=== PATIENT | male | born 1940 | race Caucasian/White ===

== ENCOUNTER 2020-07-30 16:18 | Observation (INO) ==
[2020-07-30] MEDS ORDERED: OPTIRAY 350 500ml IV ONE (16:19)
--- NOTE | 2020-07-30 16:32 | Emergency Department Note ---
Impression & Plan 3rd nerve palsy, partial, Hypertension, Unsteady ED Provider Note Provider: Yandel Gustafson MD DATE OF SERVICE: 07/30/2020 CHIEF COMPLAINT: Visual change, dizziness HISTORY OF PRESENT ILLNESS: Patient is a 79-year-old gentleman history of hypertension presenting here today reporting that he went to bed last night okay around 11:00pm. Woke up around 530a this morning and stated he felt that his vision was off he felt somewhat unstable. Denies any nausea or pain. Denies any numbness or weakness in his arms or legs. Denies any difficulty speaking. Denies any falls. Denies history of similar. Patient denies any chest pain or shortness of breath or recent fevers. Patient states it seemed like his left eye was not quite working as well but denies black spots or flashes or eye pain. Went to the eye doctor who referred him here today via ambulance. Was made a stroke alert in consultation prior to arrival. Patient's not on significant anticoagulation. Patient denies a history of stroke, CAD, or diabetes. REVIEW OF SYSTEMS: A total of 10 review of systems was obtained and negative except as stated above in the HPI. PAST MEDICAL HISTORY: As noted above MEDICATIONS: Reviewed home medication list SOCIAL HISTORY: Former smoker, lives at home PHYSICAL EXAM: GENERAL: alert and oriented in no acute distress on stretcher Head: normocephalic and atraumatic EYES: No injection, discharge or icterus. PERRL, patient is unable to Adduct the right eye and the left eye has some slight bouncing horizontal nystagmus during attempts to look towards the left. Other extraocular motions appear intact. NECK: Trachea midline. Supple. ENT: Mucous membranes pink and moist. Pharynx without erythema or exudate. LUNGS: Airway patent. No retractions. Breath sounds clear with good air entry bilaterally. HEART: Regular rate and rhythm. No chest wall tenderness ABDOMEN: Soft and non-tender, without guarding or rebound. SKIN: Acyanotic, warm, dry, without rashes EXTREMITIES: Without swelling, tenderness or deformity NEUROLOGICAL: No focal deficits. No aphasia. No facial droop or slurred speech. Again a partial right 3rd nerve palsy appreciated unable to abduct the right eye towards midline. Normal strength and tone in the extremities. Sensation to gross touch normal. EK/min sinus and first AV block without ST segment elevation or depression. Left axis noted. QTc 447. No PVC noted. CONTINUOUS CARDIAC MONITORING: was ordered and showed a heart rate of 60s and 70s bpm in sinus rhythm first-degree AV block Patient's laboratory studies and imaging reviewed. Differential includes Infection, dehydration, metabolic abnormality, hypo/hyperglycemia, electrolyte disturbance, anemia, hypoxia, cardiac sources, intracerebral event, toxicologic, neurologic, as well as other pathologies. IMPRESSION/MEDICAL DECISION MAKING: Patient presents with his concern for strokelike symptoms with dizziness and visual issues and made a stroke alert. Outside the time window for TPA. No large vessel occlusion or intracranial hemorrhage appreciated on imaging. Patient has what appears to be a new onset of a right partial 3rd nerve palsy; unable to abduct medially with the right eye. No other significant neurological deficits are appreciated. Given full dose aspirin here. While he does not have significant diabetic cardiovascular risk factors, possible occult stroke or ischemic 3rd nerve palsy are possible. Blood work above without significant abnormality. Discussed the patient proceed with further work-up MRI. Given his age and risk factors feel that obtaining the MRI and further observation here and neurological consultation morning would be reasonable. Patient was in agreement. Discussed with the hospitalist. 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 History of COVID-19 History of malignant neoplasm of small intestine Hx of basal cell carcinoma Hx of small bowel obstruction Hyperlipidemia Hypertension Osteoarthritis Surgical History H/O shoulder surgery RT TSA History of cataract surgery LEFT History of colon resection History of colonoscopy History of esophagogastroduodenoscopy (EGD) History of herniorrhaphy LEFT INGUINAL History of inguinal hernia repair History of tonsillectomy History of tooth extraction History of transurethral resection of prostate S/P repair of hydrocele Family History Mother Clotting disorder Social History Smoking Status: Never smoker Second Hand Exposure: No; Do You Dip or Chew Tobacco: No; Tobacco Cessation Education Requested by Patient: No Hx Alcohol Use: No Hx Substance Use: No Preferred Language: Mongolian Communication Ability: Effective Straw Hat Brusher Required: No Beliefs That Will Affect Care: None Current Living Situation: Alone Other Information That Helps Us Care for You: No Feels Safe at Home: Yes Safety Concerns: Feels Safe At This Time Assistive Devices: None Allergies Allergies Allergy/AdvReac Type Severity Reaction Status Date / Time gadobutrol Allergy Severe tongue Verified 07/30/20 21:15 swelling Gadolinium-Containing Allergy Severe Anaphylaxis Verified 07/31/20 00:00 Contrast Medi house dust mite Allergy Mild SINUS Verified 07/30/20 20:51 DRAINAGE Home Meds Home Medications Medication Instructions Recorded Confirmed albuterol sulfate 1 inh INHALATION QID PRN 09/22/19 07/30/20 atorvastatin 20 mg PO HS 09/22/19 07/30/20 cyanocobalamin (vitamin B-12) 500 mcg PO HS 09/22/19 07/30/20 folic acid 1 mg PO HS 09/22/19 07/30/20 ipratropium bromide 2 spray INTRANASAL TID PRN 09/22/19 07/30/20 losartan-hydrochlorothiazide 1 tab PO QAM 09/22/19 07/30/20 pyridoxine (vitamin B6) [Vitamin 100 mg PO HS 09/22/19 07/30/20 B-6] azelastine 2 spray INTRANASAL DAILY 07/30/20 07/30/20 vardenafil [Levitra] 20 mg PO DAILY PRN 07/30/20 07/30/20 Results & Data (ED) Vital Signs Vital Signs - 24 hr 07/30/20 16:38 07/30/20 16:45 07/30/20 16:52 Temperature 36.9 C Temperature Source Oral Pulse Rate 67 86 72 Pulse Rate from SpO2 Sensor 71 73 Respiratory Rate 18 Blood Pressure 172/106 H 177/98 H Blood Pressure Mean 128 124 Pulse Oximetry 98 95 93 Sepsis Recent Fever Within 48 Hours No Sepsis New/Unexplained Change in Mental Status No Sepsis Action Taken by Nursing No Action Required 07/30/20 17:00 07/30/20 17:16 07/30/20 17:30 Temperature Temperature Source Pulse Rate 70 75 71 Pulse Rate from SpO2 Sensor 74 71 69 Respiratory Rate 18 23 Blood Pressure 181/95 H 180/98 H 186/90 H Blood Pressure Mean 123 125 122 Pulse Oximetry 90 92 91 Sepsis Recent Fever Within 48 Hours Sepsis New/Unexplained Change in Mental Status Sepsis Action Taken by Nursing 07/30/20 17:45 Temperature Temperature Source Pulse Rate 72 Pulse Rate from SpO2 Sensor 69 Respiratory Rate 23 Blood Pressure 185/90 H Blood Pressure Mean 121 Pulse Oximetry 92 Sepsis Recent Fever Within 48 Hours Sepsis New/Unexplained Change in Mental Status Sepsis Action Taken by Nursing Laboratory Data Result diagrams: 07/30/20 16:30 07/30/20 16:30 Lab Results 07/30/20 07/30/20 07/30/20 Range/Units 16:30 16:30 16:30 WBC 4.58 L (4.8-10.8) K/uL RBC 4.04 L (4.7-6.1) M/uL Hgb 13.4 L (14.0-18.0) g/dL Hct 39.4 L (42-52) % MCV 97.5 (80-100) fL MCH 33.2 (25-34) pg MCHC 34.0 (32-36) g/dL RDW Std Deviation 48.7 H (36.4-46.3) fL RDW Coeff of Alonzo 13.6 (11.5-14.5) % Plt Count 153 (130-400) K/uL MPV 9.5 (7.4-10.4) fL Immature Gran % (Auto) 0.2 % Neut % (Auto) 54.2 % Lymph % (Auto) 31.4 % [place] % (Auto) 11.6 % Eos % (Auto) 2.4 % Baso % (Auto) 0.2 % Neut # (Auto) 2.48 (1.4-6.5) K/uL Lymph # (Auto) 1.44 (1.2-3.4) K/uL [place] # (Auto) 0.53 (0.11-0.59) K/uL Eos # (Auto) 0.11 (0-0.5) K/uL Baso # (Auto) 0.01 (0-0.2) K/uL Immature Gran # (Auto) 0.01 (0.00-0.02) K/uL PT 10.6 (9.0-12.0) Seconds INR 1.0 (0.9-1.1) APTT 25.4 (21.0-31.0) Seconds PTT Ratio 1.0 Sodium (136-145) mmol/L Potassium (3.5-5.1) mmol/L Chloride (98-107) mmol/L Carbon Dioxide (21-32) mmol/L Anion Gap (3-11) BUN (7-18) mg/dl Creatinine (0.6-1.4) mg/dl Est Cr Clr Drug Dosing ml/min Est GFR ( Amer) ml/min Est GFR (Non-Af Amer) ml/min BUN/Creatinine Ratio (10-20) Glucose (70-99) mg/dl Calcium (8.5-10.1) mg/dl Magnesium (1.8-2.4) mg/dl Total Bilirubin (0.2-1) mg/dl AST (15-37) U/L ALT (12-78) U/L Alkaline Phosphatase (45-117) U/L Troponin I (0-0.045) ng/ml Total Protein (6.4-8.2) gm/dl Albumin (3.4-5.0) gm/dl Globulin (2.5-4.0) gm/dl Albumin/Globulin Ratio (0.9-2) Urine Color Urine Appearance (Clear) Urine pH (4.5-7.5) Ur Specific Star (1.000-1.030) Urine Protein (Negative) Urine Glucose (UA) (Negative) Urine Ketones (Negative) Urine Blood (Negative) Urine Nitrite (Negative) Urine Bilirubin (Negative) Urine Urobilinogen (Negative) Ur Leukocyte Esterase (Negative) COVID-19 Eval Order SARS-CoV-2 (PCR) (Negative) Blood Type A Positive Antibody Screen NEGATIVE 07/30/20 07/30/20 07/30/20 Range/Units 16:30 16:50 16:50 WBC (4.8-10.8) K/uL RBC (4.7-6.1) M/uL Hgb (14.0-18.0) g/dL Hct (42-52) % MCV (80-100) fL MCH (25-34) pg MCHC (32-36) g/dL RDW Std Deviation (36.4-46.3) fL RDW Coeff of [place]onzo (11.5-14.5) % Plt Count (130-400) K/uL MPV (7.4-10.4) fL Immature Gran % (Auto) % Neut % (Auto) % Lymph % (Auto) % [place] % (Auto) % Eos % (Auto) % Baso % (Auto) % Neut # (Auto) (1.4-6.5) K/uL Lymph # (Auto) (1.2-3.4) K/uL [place] # (Auto) (0.11-0.59) K/uL Eos # (Auto) (0-0.5) K/uL Baso # (Auto) (0-0.2) K/uL Immature Gran # (Auto) (0.00-0.02) K/uL PT (9.0-12.0) Seconds INR (0.9-1.1) APTT (21.0-31.0) Seconds PTT Ratio Sodium 138 (136-145) mmol/L Potassium 4.4 (3.5-5.1) mmol/L Chloride 108 H (98-107) mmol/L Carbon Dioxide 26 (21-32) mmol/L Anion Gap 4.0 (3-11) BUN 17 (7-18) mg/dl Creatinine 1.08 (0.6-1.4) mg/dl Est Cr Clr Drug Dosing 65.0 ml/min Est GFR ( Amer) 75.3 ml/min Est GFR (Non-Af Amer) 64.9 ml/min BUN/Creatinine Ratio 15.5 (10-20) Glucose 92 (70-99) mg/dl Calcium 8.3 L (8.5-10.1) mg/dl Magnesium 2.6 H (1.8-2.4) mg/dl Total Bilirubin 0.8 (0.2-1) mg/dl AST 14 L (15-37) U/L ALT 25 (12-78) U/L Alkaline Phosphatase 42 L (45-117) U/L Troponin I < 0.015 (0-0.045) ng/ml Total Protein 6.5 (6.4-8.2) gm/dl Albumin 3.2 L (3.4-5.0) gm/dl Globulin 3.3 (2.5-4.0) gm/dl Albumin/Globulin Ratio 1.0 (0.9-2) Urine Color Urine Appearance (Clear) Urine pH (4.5-7.5) Ur Specific Star (1.000-1.030) Urine Protein (Negative) Urine Glucose (UA) (Negative) Urine Ketones (Negative) Urine Blood (Negative) Urine Nitrite (Negative) Urine Bilirubin (Negative) Urine Urobilinogen (Negative) Ur Leukocyte Esterase (Negative) COVID-19 Eval Order Covid19 at [facility] SARS-CoV-2 (PCR) NEGATIVE (Negative) Blood Type Antibody Screen 07/30/20 Range/Units 17:20 WBC (4.8-10.8) K/uL RBC (4.7-6.1) M/uL Hgb (14.0-18.0) g/dL Hct (42-52) % MCV (80-100) fL MCH (25-34) pg MCHC (32-36) g/dL RDW Std Deviation (36.4-46.3) fL RDW Coeff of [place]onzo (11.5-14.5) % Plt Count (130-400) K/uL MPV (7.4-10.4) fL Immature Gran % (Auto) % Neut % (Auto) % Lymph % (Auto) % [place] % (Auto) % Eos % (Auto) % Baso % (Auto) % Neut # (Auto) (1.4-6.5) K/uL Lymph # (Auto) (1.2-3.4) K/uL [place] # (Auto) (0.11-0.59) K/uL Eos # (Auto) (0-0.5) K/uL Baso # (Auto) (0-0.2) K/uL Immature Gran # (Auto) (0.00-0.02) K/uL PT (9.0-12.0) Seconds INR (0.9-1.1) APTT (21.0-31.0) Seconds PTT Ratio Sodium (136-145) mmol/L Potassium (3.5-5.1) mmol/L Chloride (98-107) mmol/L Carbon Dioxide (21-32) mmol/L Anion Gap (3-11) BUN (7-18) mg/dl Creatinine (0.6-1.4) mg/dl Est Cr Clr Drug Dosing ml/min Est GFR ( Amer) ml/min Est GFR (Non-Af Amer) ml/min BUN/Creatinine Ratio (10-20) Glucose (70-99) mg/dl Calcium (8.5-10.1) mg/dl Magnesium (1.8-2.4) mg/dl Total Bilirubin (0.2-1) mg/dl AST (15-37) U/L ALT (12-78) U/L Alkaline Phosphatase (45-117) U/L Troponin I (0-0.045) ng/ml Total Protein (6.4-8.2) gm/dl Albumin (3.4-5.0) gm/dl Globulin (2.5-4.0) gm/dl Albumin/Globulin Ratio (0.9-2) Urine Color Yellow Urine Appearance Clear (Clear) Urine pH 5.5 (4.5-7.5) Ur Specific Star 1.028 (1.000-1.030) Urine Protein Negative (Negative) Urine Glucose (UA) Negative (Negative) Urine Ketones Negative (Negative) Urine Blood Negative (Negative) Urine Nitrite Negative (Negative) Urine Bilirubin Negative (Negative) Urine Urobilinogen Negative (Negative) Ur Leukocyte Esterase Negative (Negative) COVID-19 Eval Order SARS-CoV-2 (PCR) (Negative) Blood Type Antibody Screen Administered Medications Atorvastatin Calcium (Atorvastatin 20 Mg Tab) 20 mg PO [facility] Stop: 08/29/20 20:59 Last Admin: 07/31/20 00:13 Dose: 20 mg Documented by: [id number] Cyanocobalamin (Cyanocobalamin 500 Mcg Tablet (Vitamin B-12)) 500 mcg PO [facility] Stop: 08/29/20 20:59 Last Admin: 07/31/20 00:13 Dose: 500 mcg Documented by: [id number] Folic Acid (Folic Acid 1 Mg Tab) 1 mg PO [facility] Stop: 08/29/20 20:59 Last Admin: 07/31/20 00:13 Dose: 1 mg Documented by: [id number] Sodium Chloride (Nss 1000ml) 1,000 mls @ 125 mls/hr IV .Q8H JODY Stop: 08/01/20 22:14 Last Admin: 07/31/20 00:16 Dose: 125 mls/hr Documented by: [id number] Pyridoxine HCl (Pyridoxine Hcl 50 Mg Tab) 100 mg PO [facility] Stop: 08/29/20 20:59 Last Admin: 07/31/20 00:13 Dose: 100 mg Documented by: [id number] Discontinued Medications Aspirin (Aspirin 81 Mg Chew) 324 mg PO NOW STA Stop: 07/30/20 17:20 Last Admin: 07/30/20 17:31 Dose: 324 mg Documented by: [id number] Diphenhydramine HCl (Diphenhydramine 50 Mg/Ml Vial) 50 mg IV NOW STA Stop: 07/30/20 21:06 Last Admin: 07/30/20 21:30 Dose: 50 mg Documented by: [id number] Epinephrine (Racepinephrine 2.25% Nebu Soln 0.5 Ml Vial) 0.5 ml NEB NOW STA Stop: 07/30/20 21:38 Last Admin: 07/30/20 22:28 Dose: Not Given Documented by: [id number] Gadobutrol (Gadobutrol 65ml Vial) 9 ml IV ONCE ONE Stop: 07/30/20 20:41 Last Admin: 07/30/20 20:40 Dose: 9 ml Documented by: [id number] Sodium Chloride (Nss 1000ml) 500 mls @ 999 mls/hr IV .Q31M ONE Stop: 07/30/20 21:35 Last Infusion: 07/30/20 22:01 Dose: 0 mls/hr Documented by: [id number] Admin: 07/30/20 21:30 Dose: 999 mls/hr Documented by: [id number] Famotidine 20 mg/ Syringe 5 mls @ 2.5 mls/min IV NOW STA Stop: 07/30/20 21:10 Last Admin: 07/30/20 21:32 Dose: 2.5 mls/min Documented by: [id number] Methylprednisolone 125 mg/ (Syringe) 2 mls @ 1.5 mls/min IV NOW STA Stop: 07/30/20 21:11 Last Admin: 07/30/20 21:30 Dose: 1.5 mls/min Documented by: [id number] Ioversol (Optiray 350 500ml) 119 ml IV ONCE ONE Stop: 07/30/20 16:20 Last Admin: 07/30/20 16:20 Dose: 119 ml Documented by: [id number] Imaging Data Radiologist's Impression: Head CT 07/30/20 16:12 HEAD & NECK CTA HISTORY: Left-sided facial droop. Double vision. Stroke Like Symptoms TECHNIQUE: Multiaxial CT images of the head were performed both before and after the intravenous administration of contrast to evaluate the major cerebral vessels. Multiaxial CT images of the neck were also performed following the intravenous administration of contrast to evaluate the major cervical vessels. Maximum intensity projection images were also obtained. A dose lowering technique was utilized adhering to the principles of ALARA. COMPARISON: None. FINDINGS: Head CT: There is no mass, hematoma, midline shift, or acute infarct. Mild mucosal thickening within the ethmoid air cells and right sphenoid sinus. The mastoid air cells are clear. A left scleral buckle is noted. Punctate calcification within the mikaela. The ventricles and sulci demonstrate mild age- related involutional changes. There is no mass, hematoma, midline shift, or acute infarct. Patchy periventricular white matter hypodensity is nonspecific but favors microvascular ischemic change. Head CTA: Visualized intracranial internal carotid arteries, distal vertebral arteries, and basilar artery are widely patent. There is no significant stenosis, occlusion, or aneurysm seen within the bilateral ACAs, MCAs, or clarifier operator. The major dural venous sinuses appear patent. Mild calcified plaque within the bilateral carotid siphons. There is a 2 mm left supraclinoid ICA aneurysm best seen on image 95. Neck CTA: The aortic arch and proximal great vessels are widely patent. There is no significant stenosis, occlusion, or dissection identified within the bilateral common carotid, internal carotid, or vertebral arteries. IMPRESSION: 1. No acute intracranial abnormality. 2. No significant stenosis or occlusion within the [place]. 3. A 2 mm left supraclinoid ICA aneurysm. 4. No significant stenosis, occlusion, or dissection identified within the carotid or vertebral arteries. ACT 112: Negative or not required by law. Electronically signed by: Jimy Can M.D. 07/30/2020 4:43 PM Head CTA 07/30/20 16:12 HEAD & NECK CTA HISTORY: Left-sided facial droop. Double vision. Stroke Like Symptoms TECHNIQUE: Multiaxial CT images of the head were performed both before and after the intravenous administration of contrast to evaluate the major cerebral vessels. Multiaxial CT images of the neck were also performed following the intravenous administration of contrast to evaluate the major cervical vessels. Maximum intensity projection images were also obtained. A dose lowering technique was utilized adhering to the principles of ALARA. COMPARISON: None. FINDINGS: Head CT: There is no mass, hematoma, midline shift, or acute infarct. Mild mucosal thickening within the ethmoid air cells and right sphenoid sinus. The mastoid air cells are clear. A left scleral buckle is noted. Punctate calcification within the mikaela. The ventricles and sulci demonstrate mild age- related involutional changes. There is no mass, hematoma, midline shift, or acute infarct. Patchy periventricular white matter hypodensity is nonspecific but favors microvascular ischemic change. Head CTA: Visualized intracranial internal carotid arteries, distal vertebral arteries, and basilar artery are widely patent. There is no significant stenosis, occlusion, or aneurysm seen within the bilateral ACAs, MCAs, or clarifier operator. The major dural venous sinuses appear patent. Mild calcified plaque within the bilateral carotid siphons. There is a 2 mm left supraclinoid ICA aneurysm best seen on image 95. Neck CTA: The aortic arch and proximal great vessels are widely patent. There is no significant stenosis, occlusion, or dissection identified within the bilateral common carotid, internal carotid, or vertebral arteries. IMPRESSION: 1. No acute intracranial abnormality. 2. No significant stenosis or occlusion within the [place]. 3. A 2 mm left supraclinoid ICA aneurysm. 4. No significant stenosis, occlusion, or dissection identified within the carotid or vertebral arteries. ACT 112: Negative or not required by law. Electronically signed by: Jimy Can M.D. 07/30/2020 4:43 PM Neck CTA 07/30/20 16:12 HEAD & NECK CTA HISTORY: Left-sided facial droop. Double vision. Stroke Like Symptoms TECHNIQUE: Multiaxial CT images of the head were performed both before and after the intravenous administration of contrast to evaluate the major cerebral vessels. Multiaxial CT images of the neck were also performed following the intravenous administration of contrast to evaluate the major cervical vessels. Maximum intensity projection images were also obtained. A dose lowering t echnique was utilized adhering to the principles of ALARA. COMPARISON: None. FINDINGS: Head CT: There is no mass, hematoma, midline shift, or acute infarct. Mild mucosal thickening within the ethmoid air cells and right sphenoid sinus. The mastoid air cells are clear. A left scleral buckle is noted. Punctate calcifica tion within the mikaela. The ventricles and sulci demonstrate mild age-related involutional changes. There is no mass, hematoma, midline shift, or acute infarct. Patchy periventricular white matter hypodensity is nonspecific but favors microvascular ischemic change. Head CTA: Visualized intracranial internal carotid arteries, distal vertebral arteries, and basilar artery are widely patent. There is no significant stenosis, occlusion, or aneurysm seen within the bilateral ACAs, MCAs, or clarifier operator. The major dural venous sinuses appear patent. Mild calcified plaque within the b ilateral carotid siphons. There is a 2 mm left supraclinoid ICA aneurysm best seen on image 95. Neck CTA: The aortic arch and proximal great vessels are widely patent. There is no significant stenosis, occlusion, or dissection identified within the bilateral common carotid, internal carotid, or vertebral arteries. IMPRESSION: 1. No acute intracranial abnormality. 2. No significant stenosis or occlusion within the [place]. 3. A 2 mm left supraclinoid ICA aneurysm. 4. No significant stenosis, occlusion, or dissection identified within the carotid or vertebral arteries. ACT 112: Negative or not required by law. Electronically signed by: iJmy Can M.D. 07/30/2020 4:43 PM Discharge Plan Visit Data Chief Complaint: Stroke Alert Stated Complaint: STROKE ALERT ED Provider: Yandel Gustafson Discharge Problem: 3rd nerve palsy, partial, Hypertension, Unsteady Patient Disposition: Admitted As Inpatient Discharge Instructions Interventions: ED Discharge Assessment Last Done: 07/30/20 19:05 Discharge Problem: 3rd nerve palsy, partial Qualifiers: Laterality: unspecified laterality Qualified Code(s): H49.00 - Third [oculomotor] nerve palsy, unspecified eye Hypertension Qualifiers: Hypertension type: unspecified Qualified Code(s): I10 - Essential (primary) hypertension
[2020-07-30 16:42] LABS: Basophils # (auto) 0.01 K/uL (0-0.2); Basophils % (auto) 0.2 %; Eosinophils # (auto) 0.11 K/uL (0-0.5); Eosinophils % (auto) 2.4 %; Hematocrit (blood only) 39.4 % (42-52); Hemoglobin 13.4 g/dL (14.0-18.0); Immature Granulocytes # (auto) 0.01 K/uL (0.00-0.02); Immature Granulocytes % (auto) 0.2 %; Lymphocytes # (auto) 1.44 K/uL (1.2-3.4); Lymphocytes % (auto) 31.4 %; Mean Corpuscular Hemoglobin 33.2 pg (25-34); Mean Corpuscular Volume 97.5 fL (80-100); Mean Platelet Volume 9.5 fL (7.4-10.4); Monocytes # (auto) 0.53 K/uL (0.11-0.59); Monocytes % (auto) 11.6 %; Neutrophils # (auto) 2.48 K/uL (1.4-6.5); Neutrophils % (auto) 54.2 %; Platelet Count 153 K/uL (130-400); RDW Coefficient of Variation 13.6 % (11.5-14.5); RDW Standard Deviation 48.7 fL (36.4-46.3); Red Blood Count 4.04 M/uL (4.7-6.1); White Blood Count 4.58 K/uL (4.8-10.8)
--- NOTE | 2020-07-30 16:44 | CT Scan Report ---
HEAD & NECK CTA HISTORY: Left-sided facial droop. Double vision. Stroke Like Symptoms TECHNIQUE: Multiaxial CT images of the head were performed both before and after the intravenous admi nistration of contrast to evaluate the major cerebral vessels. Multiaxial CT images of the neck were also performed following the intravenous administration of contrast to evaluate the major cervical ve ssels. Maximum intensity projection images were also obtained. A dose lowering technique was utilized adhering to the principles of ALARA. COMPARISON: None. FINDINGS: Head CT: There is no mass, hematoma, midline shift, or acute infarct. Mild mucosal thickening within the ethmoid air cells and right sphenoid sinus. The mastoid air cells are clear. A left scleral buckl e is noted. Punctate calcification within the mikaela. The ventricles and sulci demonstrate mild age-rel ated involutional changes. There is no mass, hematoma, midline shift, or acute infarct. Patchy perive ntricular white matter hypodensity is nonspecific but favors microvascular ischemic change. Head CTA: Visualized intracranial internal carotid arteries, distal vertebral arteries, and basilar a rtery are widely patent. There is no significant stenosis, occlusion, or aneurysm seen within the skyler ateral ACAs, MCAs, or supervisor ship maintenance services. The major dural venous sinuses appear patent. Mild calcified plaque withi n the bilateral carotid siphons. There is a 2 mm left supraclinoid ICA aneurysm best seen on image 95 . Neck CTA: The aortic arch and proximal great vessels are widely patent. There is no significant sten osis, occlusion, or dissection identified within the bilateral common carotid, internal carotid, or v ertebral arteries. IMPRESSION: 1. No acute intracranial abnormality. 2. No significant stenosis or occlusion within the [place]. 3. A 2 mm left supraclinoid ICA aneurysm. 4. No significant stenosis, occlusion, or dissection identified within the carotid or vertebral arter ies. ACT 112: Negative or not required by law. Electronically signed by: Jimy Can M.D. 07/30/2020 4:43 PM
--- NOTE | 2020-07-30 16:44 | CT Scan Report ---
HEAD & NECK CTA HISTORY: Left-sided facial droop. Double vision. Stroke Like Symptoms TECHNIQUE: Multiaxial CT images of the head were performed both before and after the intravenous admi nistration of contrast to evaluate the major cerebral vessels. Multiaxial CT images of the neck were also performed following the intravenous administration of contrast to evaluate the major cervical ve ssels. Maximum intensity projection images were also obtained. A dose lowering technique was utilized adhering to the principles of ALARA. COMPARISON: None. FINDINGS: Head CT: There is no mass, hematoma, midline shift, or acute infarct. Mild mucosal thickening within the ethmoid air cells and right sphenoid sinus. The mastoid air cells are clear. A left scleral buckl e is noted. Punctate calcification within the mikaela. The ventricles and sulci demonstrate mild age-rel ated involutional changes. There is no mass, hematoma, midline shift, or acute infarct. Patchy perive ntricular white matter hypodensity is nonspecific but favors microvascular ischemic change. Head CTA: Visualized intracranial internal carotid arteries, distal vertebral arteries, and basilar a rtery are widely patent. There is no significant stenosis, occlusion, or aneurysm seen within the [place] ateral ACAs, MCAs, or civil engineering project manager. The major dural venous sinuses appear patent. Mild calcified plaque withi n the bilateral carotid siphons. There is a 2 mm left supraclinoid ICA aneurysm best seen on image 95 . Neck CTA: The aortic arch and proximal great vessels are widely patent. There is no significant sten osis, occlusion, or dissection identified within the bilateral common carotid, internal carotid, or v ertebral arteries. IMPRESSION: 1. No acute intracranial abnormality. 2. No significant stenosis or occlusion within the [place]. 3. A 2 mm left supraclinoid ICA aneurysm. 4. No significant stenosis, occlusion, or dissection identified within the carotid or vertebral arter ies. ACT 112: Negative or not required by law. Electronically signed by: Jimy Can M.D. 07/30/2020 4:43 PM
--- NOTE | 2020-07-30 16:44 | CT Scan Report ---
HEAD & NECK CTA HISTORY: Left-sided facial droop. Double vision. Stroke Like Symptoms TECHNIQUE: Multiaxial CT images of the head were performed both before and after the intravenous admi nistration of contrast to evaluate the major cerebral vessels. Multiaxial CT images of the neck were also performed following the intravenous administration of contrast to evaluate the major cervical ve ssels. Maximum intensity projection images were also obtained. A dose lowering technique was utilized adhering to the principles of ALARA. COMPARISON: None. FINDINGS: Head CT: There is no mass, hematoma, midline shift, or acute infarct. Mild mucosal thickening within the ethmoid air cells and right sphenoid sinus. The mastoid air cells are clear. A left scleral buckl e is noted. Punctate calcification within the mikaela. The ventricles and sulci demonstrate mild age-rel ated involutional changes. There is no mass, hematoma, midline shift, or acute infarct. Patchy perive ntricular white matter hypodensity is nonspecific but favors microvascular ischemic change. Head CTA: Visualized intracranial internal carotid arteries, distal vertebral arteries, and basilar a rtery are widely patent. There is no significant stenosis, occlusion, or aneurysm seen within the [place] ateral ACAs, MCAs, or payable processor. The major dural venous sinuses appear patent. Mild calcified plaque withi n the bilateral carotid siphons. There is a 2 mm left supraclinoid ICA aneurysm best seen on image 95 . Neck CTA: The aortic arch and proximal great vessels are widely patent. There is no significant sten osis, occlusion, or dissection identified within the bilateral common carotid, internal carotid, or v ertebral arteries. IMPRESSION: 1. No acute intracranial abnormality. 2. No significant stenosis or occlusion within the [place]. 3. A 2 mm left supraclinoid ICA aneurysm. 4. No significant stenosis, occlusion, or dissection identified within the carotid or vertebral arter ies. ACT 112: Negative or not required by law. Electronically signed by: Jimy Can M.D. 07/30/2020 4:43 PM
[2020-07-30 16:53] LABS: Partial Thromboplastin Time 25.4 Seconds (21.0-31.0); Prothrombin Time 10.6 Seconds (9.0-12.0)
[2020-07-30 17:00] LABS: Alanine Aminotransferase 25 U/L (12-78); Albumin Level 3.2 gm/dl (3.4-5.0); Aspartate Aminotransferase 14 U/L (15-37); BUN Creatinine Ratio 15.5 (10-20); Blood Urea Nitrogen 17 mg/dl (7-18); Calcium 8.3 mg/dl (8.5-10.1); Carbon Dioxide 26 mmol/L (21-32); Chloride 108 mmol/L (98-107); Est GFR (African American) 75.3 ml/min; Est GFR (Non-African American) 64.9 ml/min; Glucose 92 mg/dl (70-99); Magnesium 2.6 mg/dl (1.8-2.4); Potassium 4.4 mmol/L (3.5-5.1); Sodium 138 mmol/L (136-145)
[2020-07-30 17:05] LABS: Alkaline Phosphatase 42 U/L (45-117); Bilirubin,Total 0.8 mg/dl (0.2-1); Globulin 3.3 gm/dl (2.5-4.0); Total Protein 6.5 gm/dl (6.4-8.2); Troponin I < 0.015 ng/ml (0-0.045)
[2020-07-30] MEDS ORDERED: ASPIRIN 81 MG CHEW PO STA (17:19)
[2020-07-30 18:08] LABS: Appearance Urine Clear (Clear); Bilirubin Urine Negative (Negative); Blood Urine Negative (Negative); Color Urine Yellow; Glucose Urine UA Negative (Negative); Ketones Urine Negative (Negative); Leukocyte Esterase Urine Negative (Negative); Nitrite Urine Negative (Negative); Protein Urine Negative (Negative); Specific Gravity Urine 1.028 (1.000-1.030); Urobilinogen Urine Negative (Negative); pH Urine 5.5 (4.5-7.5)
--- NOTE | 2020-07-30 19:10 | History & Physical Report ---
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 Continue home statin -Brain MRI, echo -Neurochecks -Neurology consult -notified Dr. 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 Patient reports he went to bed feeling in his usual state of health. This morning, whenever he woke up he reports that he had double vision and felt very unsteady on his feet. He was evaluated by his direct mail manager who found a partial 3rd nerve palsy and patient was sent to the ED for further evaluation. Patient denies lightheadedness, dizziness, syncopal event. No chest pain or shortness of breath. Denies abdominal pain, nausea, vomiting, diarrhea. No other recent illnesses, fevers, chills. Denies urinary symptoms. In the ED, head CT and head and neck CTAs are unremarkable. Patient is hemodynamically stable. Patient was given a full dose aspirin. Allergies Allergy/AdvReac Type Severity Reaction Status Date / Time DUST MITES Allergy Mild SINUS Uncoded 07/30/20 17:01 DRAINAGE Home Medications Medication Instructions Recorded Confirmed Type albuterol sulfate 1 inh INHALATION QID PRN 09/22/19 07/30/20 History atorvastatin 20 mg PO HS 09/22/19 07/30/20 History cyanocobalamin (vitamin B-12) 500 mcg PO HS 09/22/19 07/30/20 History folic acid 1 mg PO HS 09/22/19 07/30/20 History ipratropium bromide 2 spray INTRANASAL TID PRN 09/22/19 07/30/20 History losartan-hydrochlorothiazide 1 tab PO QAM 09/22/19 07/30/20 History pyridoxine (vitamin B6) [Vitamin 100 mg PO HS 09/22/19 07/30/20 History B-6] azelastine 2 spray INTRANASAL DAILY 07/30/20 07/30/20 History vardenafil [Levitra] 20 mg PO DAILY PRN 07/30/20 07/30/20 History Past Med/Surg History Medical History BPH (benign prostatic hyperplasia) Environmental allergies USES INHALER FOR Heterozygous MTHFR mutation [id number] History of COVID-19 History of malignant neoplasm of small intestine Hx of basal cell carcinoma Hx of small bowel obstruction Hyperlipidemia Hypertension Osteoarthritis Surgical History H/O shoulder surgery RT TSA History of cataract surgery LEFT History of colon resection History of colonoscopy History of esophagogastroduodenoscopy (EGD) History of herniorrhaphy LEFT INGUINAL History of inguinal hernia repair History of tonsillectomy History of tooth extraction History of transurethral resection of prostate S/P repair of hydrocele Family History Mother Clotting disorder Social History Smoking Status: Never smoker Second Hand Exposure: No; Do You Dip or Chew Tobacco: No; Tobacco Cessation Education Requested by Patient: No Hx Alcohol Use: No Hx Substance Use: No Preferred Language: Swedish Communication Ability: Effective Bus Greaser Required: No Beliefs That Will Affect Care: None Current Living Situation: Alone Other Information That Helps Us Care for You: No Feels Safe at Home: Yes Safety Concerns: Feels Safe At This Time Assistive Devices: None Review of Systems Review of Systems: ROS per HPI, all other systems reviewed and negative Physical Exam Constitutional: WD/WN, vitals as above Eyes: PERRL, conjunctivae normal, anicteric sclerae + EOM not intact (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) ENMT: external ear and nose normal, oropharynx normal Respiratory: normal respiratory effort, lungs clear to auscultation Cardiovascular: Rate/Rhythm: regular rate and regular rhythm Vessels: normal peripheral pulses Extremities: no edema Gastrointestinal (Abdomen): normal bowel sounds, soft, nontender, no hepatosplenomegaly Musculoskeletal: no cyanosis or clubbing, extremities motor strength 5/5 Skin: no rashes, warm and dry Neurologic: moves all extremities and awake; no focal motor deficits Speech / Cognition: normal speech Motor/Sensory: no pronator drift Cranial Nerves: PERRL and normal facial strength; + EOM not intact (As above) Psychiatric: A+Ox3, euthymic affect Results & Data Results & Data ([facility]) Vital Signs (Past 12 Hours) Vital Signs Temp Pulse Resp BP Pulse Ox 07/30/20 18:45 71 19 177/91 H 96 07/30/20 18:30 67 18 174/82 H 94 07/30/20 18:15 71 24 183/97 H 95 07/30/20 18:00 72 20 182/95 H 95 07/30/20 17:45 72 23 185/90 H 92 07/30/20 17:30 71 23 186/90 H 91 07/30/20 17:16 75 18 180/98 H 92 07/30/20 17:00 70 181/95 H 90 07/30/20 16:52 72 93 07/30/20 16:45 86 177/98 H 95 07/30/20 16:38 36.9 C 67 18 172/106 H 98 Laboratory Results Short CBC 07/30/20 Range/Units 16:30 WBC 4.58 L (4.8-10.8) K/uL Hgb 13.4 L (14.0-18.0) g/dL Hct 39.4 L (42-52) % Plt Count 153 (130-400) K/uL BMP 07/30/20 16:30 Sodium 138 Potassium 4.4 Chloride 108 H Carbon Dioxide 26 BUN 17 Creatinine 1.08 Glucose 92 Calcium 8.3 L Cardiac Enzymes 07/30/20 Range/Units 16:30 Troponin I < 0.015 (0-0.045) ng/ml Liver Function 07/30/20 Range/Units 16:30 Total Bilirubin 0.8 (0.2-1) mg/dl AST 14 L (15-37) U/L ALT 25 (12-78) U/L Alkaline Phosphatase 42 L (45-117) U/L Albumin 3.2 L (3.4-5.0) gm/dl Urine 07/30/20 Range/Units 17:20 Urine Color Yellow Urine Appearance Clear (Clear) Urine pH 5.5 (4.5-7.5) Ur Specific [place] 1.028 (1.000-1.030) Urine Protein Negative (Negative) Urine Glucose (UA) Negative (Negative) Diagnostic Findings Head CT 07/30/20 16:12 HEAD & NECK CTA HISTORY: Left-sided facial droop. Double vision. Stroke Like Symptoms TECHNIQUE: Multiaxial CT images of the head were performed both before and after the intravenous administration of contrast to evaluate the major cerebral vessels. Multiaxial CT images of the neck were also performed following the intravenous administration of contrast to evaluate the major cervical vessels. Maximum intensity projection images were also obtained. A dose lowering technique was utilized adhering to the principles of ALARA. COMPARISON: None. FINDINGS: Head CT: There is no mass, hematoma, midline shift, or acute infarct. Mild mucosal thickening within the ethmoid air cells and right sphenoid sinus. The mastoid air cells are clear. A left scleral buckle is noted. Punctate calcification within the mikaela. The ventricles and sulci demonstrate mild age- related involutional changes. There is no mass, hematoma, midline shift, or acute infarct. Patchy periventricular white matter hypodensity is nonspecific but favors microvascular ischemic change. Head CTA: Visualized intracranial internal carotid arteries, distal vertebral arteries, and basilar artery are widely patent. There is no significant stenosis, occlusion, or aneurysm seen within the bilateral ACAs, MCAs, or sales representative gas service. The major dural venous sinuses appear patent. Mild calcified plaque within the bilateral carotid siphons. There is a 2 mm left supraclinoid ICA aneurysm best seen on image 95. Neck CTA: The aortic arch and proximal great vessels are widely patent. There is no significant stenosis, occlusion, or dissection identified within the bilateral common carotid, internal carotid, or vertebral arteries. IMPRESSION: 1. No acute intracranial abnormality. 2. No significant stenosis or occlusion within the [place]. 3. A 2 mm left supraclinoid ICA aneurysm. 4. No significant stenosis, occlusion, or dissection identified within the carotid or vertebral arteries. ACT 112: Negative or not required by law. Electronically signed by: Jimy Can M.D. 07/30/2020 4:43 PM Head CTA 07/30/20 16:12 HEAD & NECK CTA HISTORY: Left-sided facial droop. Double vision. Stroke Like Symptoms TECHNIQUE: Multiaxial CT images of the head were performed both before and after the intravenous administration of contrast to evaluate the major cerebral vessels. Multiaxial CT images of the neck were also performed following the intravenous administration of contrast to evaluate the major cervical vessels. Maximum intensity projection images were also obtained. A dose lowering technique was utilized adhering to the principles of ALARA. COMPARISON: None. FINDINGS: Head CT: There is no mass, hematoma, midline shift, or acute infarct. Mild mucosal thickening within the ethmoid air cells and right sphenoid sinus. The mastoid air cells are clear. A left scleral buckle is noted. Punctate calcification within the mikaela. The ventricles and sulci demonstrate mild age- related involutional changes. There is no mass, hematoma, midline shift, or acute infarct. Patchy periventricular white matter hypodensity is nonspecific but favors microvascular ischemic change. Head CTA: Visualized intracranial internal carotid arteries, distal vertebral arteries, and basilar artery are widely patent. There is no significant stenosis, occlusion, or aneurysm seen within the bilateral ACAs, MCAs, or sales representative gas service. The major dural venous sinuses appear patent. Mild calcified plaque within the bilateral carotid siphons. There is a 2 mm left supraclinoid ICA aneurysm best seen on image 95. Neck CTA: The aortic arch and proximal great vessels are widely patent. There is no significant stenosis, occlusion, or dissection identified within the bilateral common carotid, internal carotid, or vertebral arteries. IMPRESSION: 1. No acute intracranial abnormality. 2. No significant stenosis or occlusion within the [place]. 3. A 2 mm left supraclinoid ICA aneurysm. 4. No significant stenosis, occlusion, or dissection identified within the carotid or vertebral arteries. ACT 112: Negative or not required by law. Electronically signed by: Jimy Can M.D. 07/30/2020 4:43 PM Neck CTA 07/30/20 16:12 HEAD & NECK CTA HISTORY: Left-sided facial droop. Double vision. Stroke Like Symptoms TECHNIQUE: Multiaxial CT images of the head were performed both before and after the intravenous administration of contrast to evaluate the major cerebral vessels. Multiaxial CT images of the neck were also performed following the intravenous administration of contrast to evaluate the major cervical vessels. Maximum intensity projection images were also obtained. A dose lowering technique was utilized adhering to the principles of ALARA. COMPARISON: None. FINDINGS: Head CT: There is no mass, hematoma, midline shift, or acute infarct. Mild mucosal thickening within the ethmoid air cells and right sphenoid sinus. The mastoid air cells are clear. A left scleral buckle is noted. Punctate calcification within the mikaela. The ventricles and sulci demonstrate mild age- related involutional changes. There is no mass, hematoma, midline shift, or acute infarct. Patchy periventricular white matter hypodensity is nonspecific but favors microvascular ischemic change. Head CTA: Visualized intracranial internal carotid arteries, distal vertebral arteries, and basilar artery are widely patent. There is no significant stenosis, occlusion, or aneurysm seen within the bilateral ACAs, MCAs, or sales representative gas service. The major dural venous sinuses appear patent. Mild calcified plaque within the bilateral carotid siphons. There is a 2 mm left supraclinoid ICA aneurysm best seen on image 95. Neck CTA: The aortic arch and proximal great vessels are widely patent. There is no significant stenosis, occlusion, or dissection identified within the bilateral common carotid, internal carotid, or vertebral arteries. IMPRESSION: 1. No acute intracranial abnormality. 2. No significant stenosis or occlusion within the [place]. 3. A 2 mm left supraclinoid ICA aneurysm. 4. No significant stenosis, occlusion, or dissection identified within the carotid or vertebral arteries. ACT 112: Negative or not required by law. Electronically signed by: Jimy Can M.D. 07/30/2020 4:43 PM Code Status & VTE Plan VTE Prophylaxis Plan VTE Prophylaxis will be ordered: Yes Supervising Physician Co-Signing Physician Notes I saw this patient with the Nurse Practitioner, I participated in the history, physical, review of systems, and physical exam. I reviewed the medications with the patient and the Nurse Practitioner and helped reconcile the medications. I helped take a detailed family and social history as well. I formulated the assessment and plan personally with the Nurse Practitioner went over it with the patient. ROS-No Headache, + Visual Changes, No Nausea, No Vomiting, No Fever, No Chills, No Neck Pain or Stiffness, No Chest Pain, No Palpitations, No SOB, No HONG, No Cough, No Sputum, No Wheezing, No Abdominal Pain, No Diarrhea, No Hematemesis, No Hemoptysis, No Unexpected Weight Loss, No Flank pain, No Melena, No Hematochezia, No Frequency, No Urgency, No Burning, No Hematuria, No Rashes, No Diaphoresis. Appetite is Normal Physical Exam Gen-AAO x 3, NAD, Afebrile Head-NCAT, EOMI, PERRLA, Anicteric Sclera, No Posterior Pharyngeal Erythema, OD c Rightward Gaze Neck-Supple, No JVD, No Thyromegaly, No Masses, No LAD, No Bruits Lungs-Clear to Auscultation Bilaterally, No Rales, No Rhonchi, No Wheezing, No Crepitus Chest-No S4, +S1, +S2, No S3, No Murmurs, No Rubs, No Gallops, No Ectopy Abdomen-Soft, Bowel Sounds Present, Non Tender, Non Distended, No Hepatomegaly, No Splenomegaly, No Palpable Masses, No Rebound, No Rigidity, No Guarding Musculoskeletal-Full Range of Motion Bilaterally, No CVAT Extremities-No Cyanosis, No Clubbing, No Edema Nuero-Cranial Nerves II-XII grossly intact, Motor WNL, DTRs WNL, Strength WNL, Non Focal, R 3rd N Palsy, No droop, No Nystagmus Psych-Normal Mood
[2020-07-30] MEDS ORDERED: PHARMACIST DISCHARGE MED REC CONSULT PRN (19:29)
[2020-07-30] MEDS ORDERED: ACETAMINOPHEN 325 MG TAB PO PRN (19:29)
[2020-07-30] MEDS ORDERED: GADOBUTROL 65ML VIAL IV ONE (20:40)
[2020-07-30] MEDS ORDERED: FOLIC ACID 1 MG TAB PO SCH (21:00)
[2020-07-30] MEDS ORDERED: CYANOCOBALAMIN 500 MCG TABLET (VITAMIN B-12) PO SCH (21:00)
[2020-07-30] MEDS ORDERED: ATORVASTATIN 20 MG TAB PO SCH (21:00)
[2020-07-30] MEDS ORDERED: PYRIDOXINE HCL 50 MG TAB PO SCH (21:00)
[2020-07-30] MEDS ORDERED: diphenhydrAMINE 50 MG/ML VIAL IV STA (21:05)
[2020-07-30] MEDS ORDERED: SODIUM CHLORIDE 0.9% 1000ML 500 ML IV ONE (21:05)
[2020-07-30] MEDS ORDERED: FAMOTIDINE 20 MG in SYRINGE 3 ML IV STA (21:09)
[2020-07-30] MEDS ORDERED: methylPREDNISolone 125 MG in SYRINGE 0 ML IV STA (21:10)
--- NOTE | 2020-07-30 21:14 | Communication Note ---
Date of Service: July 30, 2020 Code janessa called around 9 PM at MRI. Patient developed tongue swelling, shortness of breath, facial redness after gadolinium administration. Patient denies chest pain. Solu-Medrol, Benadryl, Famotidine, NSS ordered by [facility] hospital[place] service in attendance. AP Angioedema secondary to gadolinium ICU monitoring given propensity for upper airway obstruction Add gadolinium the patient's allergy/ADR list Attempted to reach patient's listed contact lens curve grinder (Mr. Ron Rivera) over the phone to give update. No answer. Left voice message for call back.
[2020-07-30] MEDS ORDERED: RACEPINEPHRINE 2.25% NEBU SOLN 0.5 ML VIAL ONE (21:25)
[2020-07-30] MEDS ORDERED: ICU PROTOCOL FOR HYPERGLYCEMIA PRN (21:30)
[2020-07-30] MEDS ORDERED: RACEPINEPHRINE 2.25% NEBU SOLN 0.5 ML VIAL NEB STA (21:37)
--- NOTE | 2020-07-30 21:41 | Critical Care Consultation ---
Date of Consultation July 30, 2020 Assessment & Plan (1) Allergic reaction to contrast dye: -Patient developed erythema, angioedema, tachycardia, hypertension, and shortness of breath following exposure to gadolinium containing contrast medi and MRI. This has been added to the patient's allergy list. -Code janessa was called and patient received 125 mg Solu-Medrol, 50 mg IV Benadryl, 20 mg IV Pepcid, racemic epi x1 -Admitted to ICU for close pulmonary monitoring, no current indication for intubation at this time however anesthesia is aware and compensation/benefits specialist if needed. Patient would be difficult airway given angioedema/tongue swelling. However edema seems to be contained to the tongue and lips with some orbital edema as well. Will monitor Continue Solu-Medrol for 48-hour -IM epi is ordered at the bedside if patient were to decompensate into anaphylactic shock but has not been needed thus far -We will reassess need for further Benadryl administration Continue IV fluids NSS at 125 mL/h Continuous monitoring telemetry and pulse ox, currently maintaining sats on room air without difficulty and NSR on monitor (2) 3rd nerve palsy, partial: Patient presented to ED as referral from photoengraving retoucher for new findings of diplopia and partial 3rd nerve palsy that started early this morning. CT head, CTA head and neck, and MRI all negative for acute findings Patient did receive full dose aspirin in the ED. Continue low-dose ASA and statin Follow-up echo Continue frequent neuro checks Neurology consultedPer prior documentation Dr. 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 The patient presents to the emergency department earlier today with as a referral from his outpatient photoengraving retoucher for evaluation of diplopia and 3rd nerve palsy. The patient reports that he went to bed in his normal state of health but when he woke up in the morning he had double vision and felt very unsteady on his feet. Patient underwent a CT head and CTA head and neck in the emergency department which were unremarkable. Patient was undergoing MRI w/ wo contrast. After completion of the exam when the radiology special procedure tech entered the room, she noticed that the patient was very red, had gargled speech, and stated he was short of breath. Code purple was initiated. On exam patient was noted to have global erythema, swollen tongue, and muffled speech. He was also hypertensive and tachycardic. He had a normal respiratory rate and was maintaining oxygen saturation on room air. He was emergently treated and MRI for allergy contrast and received 50 mg IV Benadryl, 125 mg Solu-Medrol, 20 mg famotidine, and racemic epi (however patient did not develop stridor or wheezing). Patient is now transferred to the ICU for monitoring following allergic reaction with angioedema On arrival to the ICU, patient's blood pressure and heart rate have improved along with erythema. He is noted to have orbital edema and swelling of the lips. Patient states that his tongue still feels swollen but somewhat improved. His speech is still somewhat muffled but he is able to talk in complete sentences and is without respiratory distress. His lungs are clear to auscultation and he is not having stridor or wheezes in the lower or upper airways. Patient states he is able to swallow without difficulty. His neurological assessment is unchanged from earlier as he is still having diplopia. At this time, patient is to be monitored and in ICU overnight as he is high risk for decompensating. He has IM epi at the bedside if needed, although he has not shown signs of anaphylactic shock. I also briefly spoke with anesthesiologist and they are compensation/benefits specialist if needed. We will continue to monitor closely in ICU for now. Allergies Allergy/AdvReac Type Severity Reaction Status Date / Time gadobutrol Allergy Severe tongue Verified 07/30/20 21:15 swelling Gadolinium-Containing Allergy Severe Anaphylaxis Verified 07/31/20 00:00 Contrast Medi house dust mite Allergy Mild SINUS Verified 07/30/20 20:51 DRAINAGE Home Medications Medication Instructions Recorded Confirmed Type albuterol sulfate 1 inh INHALATION QID PRN 09/22/19 07/30/20 History atorvastatin 20 mg PO HS 09/22/19 07/30/20 History cyanocobalamin (vitamin B-12) 500 mcg PO HS 09/22/19 07/30/20 History folic acid 1 mg PO HS 09/22/19 07/30/20 History ipratropium bromide 2 spray INTRANASAL TID PRN 09/22/19 07/30/20 History losartan-hydrochlorothiazide 1 tab PO QAM 09/22/19 07/30/20 History pyridoxine (vitamin B6) [Vitamin 100 mg PO HS 09/22/19 07/30/20 History B-6] azelastine 2 spray INTRANASAL DAILY 07/30/20 07/30/20 History vardenafil [Levitra] 20 mg PO DAILY PRN 07/30/20 07/30/20 History Patient History Medical History BPH (benign prostatic hyperplasia) Environmental allergies USES INHALER FOR Heterozygous MTHFR mutation [id number] History of COVID-19 History of malignant neoplasm of small intestine Hx of basal cell carcinoma Hx of small bowel obstruction Hyperlipidemia Hypertension Osteoarthritis Surgical History H/O shoulder surgery RT TSA History of cataract surgery LEFT History of colon resection History of colonoscopy History of esophagogastroduodenoscopy (EGD) History of herniorrhaphy LEFT INGUINAL History of inguinal hernia repair History of tonsillectomy History of tooth extraction History of transurethral resection of prostate S/P repair of hydrocele Family History Mother Clotting disorder Social History Smoking Status: Never smoker Second Hand Exposure: No; Do You Dip or Chew Tobacco: No; Tobacco Cessation Education Requested by Patient: No Hx Alcohol Use: No Hx Substance Use: No Preferred Language: Nam[place]ian Communication Ability: Effective Mounting Machine Operator Required: No Beliefs That Will Affect Care: None Current Living Situation: Alone Other Information That Helps Us Care for You: No Feels Safe at Home: Yes Safety Concerns: Feels Safe At This Time Assistive Devices: None Review of Systems Review of Systems: All systems reviewed & are unremarkable except as noted in HPI & below Physical Exam Constitutional: cooperative and comfortable; no acute distress, no altered mental status, not diaphoretic and not edematous Eyes: PERRL, conjunctivae normal, anicteric sclerae Diplopia, orbital edema bilaterally ENMT: Mouth: + tongue abnormality (Mildly edematous tongue) Mallampati Class: II Throat: uvula midline; no uvular edema Angioedema Neck: trachea midline, no thyromegaly Respiratory: symmetric chest movement; no labored breathing, does not use accessory muscles, no cough, not tachypneic, no audible wheezes, no grunting, no pursed lip breathing, no tripod positioning and no stridor Auscultation: lungs clear to auscultation bilaterally; no crackles, no rhonchi and no wheezes Cardiovascular: RRR, no murmur, no edema Heart Sounds: normal S1 and normal S2 Vessels: no JVD Extremities: normal capillary refill Skin: Mild global erythema Neurologic: Alert and oriented, symmetrical strength in upper and lower extremities without focal motor deficits. Speech is garbled likely due to tongue edema. PERRLA, normal facial strength. Partial 3rd nerve palsy. Psychiatric: A+Ox3, euthymic affect Results & Data Results & Data ([facility]) Vital Signs (Past 12 Hours) Vital Signs Temp Pulse Pulse Resp BP BP Pulse Ox 07/30/20 21:34 88 18 98 07/30/20 19:35 37.0 C 68 16 187/72 H 95 07/30/20 18:45 71 19 177/91 H 96 07/30/20 18:30 67 18 174/82 H 94 07/30/20 18:15 71 24 183/97 H 95 07/30/20 18:00 72 20 182/95 H 95 07/30/20 17:45 72 23 185/90 H 92 07/30/20 17:30 71 23 186/90 H 91 07/30/20 17:16 75 18 180/98 H 92 07/30/20 17:00 70 181/95 H 90 07/30/20 16:52 72 93 07/30/20 16:45 86 177/98 H 95 07/30/20 16:38 36.9 C 67 18 172/106 H 98 Coding Level of Care Code 97514 Inpt Consult Level 3 Diagnoses Allergic reaction to contrast dye T50.8X5A 3rd nerve palsy, partial H49.00 Hypertension I10 Heterozygous MTHFR mutation [id number] Z15.89 Hyperlipidemia E78.5 Angioedema T78.3XXA
--- NOTE | 2020-07-30 21:41 | Magnetic Resonance Report ---
MRI OF THE BRAIN COMBO CLINICAL HISTORY: 3rd cranial nerve palsy. COMPARISON STUDY: CT of the brain dated 07/30/2020. TECHNIQUE: MRI of the brain was performed utilizing various T1 and T2-weighted sequences in the axial , sagittal, and coronal planes. Contrast-enhanced sequences were acquired following the administratio n of 9 cc of Gadavist. FINDINGS: Brain parenchyma: There is age-related involutional change noting moderate patchy subcortical and per iventricular microangiopathic disease. There is no hemorrhage or mass effect. There is no restricted diffusion to suggest acute ischemia. No enhancing mass lesion is identified on the postcontrast image s. Major-white matter differentiation is preserved. No extra-axial fluid collection is seen. The cereb ellar tonsils are normal in configuration. Ventricles, sulci, and cisterns: Prominent secondary to involutional change. Pituitary and sella: Partially empty sella is incidentally noted. Intracranial vasculature: Normal flow voids are maintained at the skull base. Orbits: The bony orbits are grossly intact. There are bilateral ocular lens implants, as well as band ing of the left ocular globe. Sinuses and mastoids: Trace mucosal thickening is noted in the frontal and ethmoid sinuses. The masto id air cells are clear. Calvarium: Unremarkable. Cervical cord: Partially visualized cervical spinal cord is normal in morphology and signal intensity . IMPRESSION: No acute intracranial abnormality. ACT 112: Negative or not required by law. Electronically signed by: Roddy Iniguez M.D. 07/30/2020 9:39 PM
[2020-07-30] MEDS ORDERED: EPINEPHrine INJ 1 MG/ML AMP IM PRN (22:06)
[2020-07-31] MEDS: SODIUM CHLORIDE 0.9% 1000ML 1,000 ML IV SCH ×2 (00:16→09:00)
[2020-07-31 05:21] LABS: Basophils # (auto) 0.01 K/uL (0-0.2); Basophils % (auto) 0.2 %; Eosinophils # (auto) 0.01 K/uL (0-0.5); Eosinophils % (auto) 0.2 %; Hematocrit (blood only) 41.9 % (42-52); Hemoglobin 14.6 g/dL (14.0-18.0); Immature Granulocytes # (auto) 0.01 K/uL (0.00-0.02); Immature Granulocytes % (auto) 0.2 %; Lymphocytes # (auto) 0.96 K/uL (1.2-3.4); Lymphocytes % (auto) 15.9 %; Mean Corpuscular Hemoglobin 33.3 pg (25-34); Mean Corpuscular Hgb Conc 34.8 g/dL (32-36); Mean Corpuscular Volume 95.7 fL (80-100); Mean Platelet Volume 9.7 fL (7.4-10.4); Monocytes # (auto) 0.18 K/uL (0.11-0.59); Neutrophils # (auto) 4.86 K/uL (1.4-6.5); Neutrophils % (auto) 80.5 %; Platelet Count 187 K/uL (130-400); RDW Coefficient of Variation 13.5 % (11.5-14.5); RDW Standard Deviation 47.1 fL (36.4-46.3); Red Blood Count 4.38 M/uL (4.7-6.1); White Blood Count 6.03 K/uL (4.8-10.8)
[2020-07-31 05:48] LABS: BUN Creatinine Ratio 13.4 (10-20); Calcium 8.5 mg/dl (8.5-10.1); Creatinine Clr Calc Pharmacy 63.7 ml/min; Est GFR (African American) 75.3 ml/min; Est GFR (Non-African American) 64.9 ml/min; Magnesium 2.6 mg/dl (1.8-2.4); Potassium 4.3 mmol/L (3.5-5.1)
[2020-07-31 05:51] LABS: Phosphorus 3.4 mg/dl (2.5-4.9)
--- NOTE | 2020-07-31 07:01 | XRay Report ---
XR chest 1V portable CLINICAL HISTORY: sob COMPARISON STUDY: December 05, 2016. FINDINGS: No pneumothorax. Persistent blunting of the left costophrenic angle which is unchanged since prior study in 2017 could represent small the moderate left pleural effusion and/or pleural thickening. Minimal atelectasis is seen at bilateral bases. Cardiomediastinal silhouette is within normal limits in size. No significant pulmonary vascular congestion.. Aorta is calcified. Osseous structures: Degenerative changes of the spine and left shoulder. Prosthetic right shoulder i s again seen. IMPRESSION: 1. Stable small to moderate left pleural effusion/pleural thickening. 2. Small atelectasis in bilateral bases. ACT 112: Negative or not required by law. The above report was generated using voice recognition software. It may contain grammatical, syntax o r spelling errors. Electronically signed by: Ines Pressley DO 07/31/2020 7:00 AM
[2020-07-31 07:12] LABS: Estimated Average Glucose 111 mg/dl; Hemoglobin A1C 5.5 % (4.5-5.6)
[2020-07-31] MEDS: methylPREDNISolone 50 MG in SYRINGE 0 ML IV SCH ×2 (07:59→16:08)
[2020-07-31] MEDS ORDERED: LOSARTAN/HCTZ 50/12.5MG TAB PO SCH (09:00)
[2020-07-31] MEDS ORDERED: ASPIRIN 81 MG ECTAB PO SCH (09:00)
--- NOTE | 2020-07-31 09:20 | Communication Note ---
Date of Service: July 31, 2020 Patient reports he feels worse than yesterday given the allergic reaction overnight however he has significantly improved. Decrease in facial edema still mild sensation change underneath tongue and mildly hoarse voice however able to tolerate swallowing his own saliva and would like to eat breakfast. Patient is stable for downgrade out of ICU. Coding Level of Care Code None
--- NOTE | 2020-07-31 11:33 | Consultation Report ---
DATE OF CONSULTATION: 07/31/2020 NEUROLOGY CONSULTATION NOTE CHIEF COMPLAINT: Diplopia. HISTORY OF PRESENT ILLNESS: A pleasant 79-year-old male with a history of hypertension and a heterozygous MTHFR mutation, referred to the Emergency Department by ophthalmology for new-onset partial cranial nerve III palsy. The patient states he woke up yesterday morning with double vision. He had no pain or eye pain. Never had these symptoms before. Double vision was improved with closing either eye. He did feel off balance. Otherwise, he denies any weakness or numbness. There was no tenderness to palpation around his temples. He was seen in the ophthalmology office and then referred to the Emergency Department to rule out a stroke. After admission, he did undergo CTA imaging as well as MRI of the brain and unfortunately had a gadolinium contrast reaction and was transferred to the ICU for concerns for angioedema. Today, he reports overall feeling better, although he still has a raspy voice. He denies any known facial droop. Double vision is still persistent and is improved with closing either eye. He denies any difficulty closing either eye. Neurology was consulted upon admission. ALLERGIES: DUST MITES, GADOLINIUM CONTRAST. HOME MEDICATIONS: Albuterol, atorvastatin, vitamin B12, folic acid, losartan/hydrochlorothiazide, vitamin B6, Levitra. PAST MEDICAL HISTORY: Benign prostatic hyperplasia, heterozygous MTHFR mutation, history of COVID-19, malignant neoplasm of the small intestine, history of basal cell carcinoma, small-bowel obstruction, hyperlipidemia, hypertension, osteoarthritis. PAST SURGICAL HISTORY: History of right shoulder surgery, cataract surgery on the left, colon resection, colonoscopy, EGD, left inguinal hernia repair, history of tonsillectomy, tooth extraction, transurethral resection of the prostate as well as repair of a hydrocele. FAMILY HISTORY: There is a positive family history of clotting disorder (mother) . SOCIAL HISTORY: The patient is a former smoker, although quit 40 years ago. He is retired. He lives alone. REVIEW OF SYSTEMS: All 14 review of systems was reviewed and negative except as noted above in the HPI including diplopia. PHYSICAL EXAMINATION: VITAL SIGNS: Blood pressure 164/96, pulse is 79, temperature is 36.7 degrees Celsius, oxygen saturation is 93% on room air. GENERAL: The patient appears normally developed. He appears stated age. He is resting in bed this morning, although he does not appear in any distress. HEENT: His head is normocephalic, although there seems to be some swelling of both cheeks. There is a left eye ptosis, which may be related to previous cataract surgery. His conjunctivae are normal. NECK: Supple. LUNGS: Breathing is nonlabored with normal effort. CARDIOVASCULAR: Normal cardiac pulses. ABDOMEN: Nondistended. SKIN: No skin rashes noted. PSYCHIATRIC: He has normal mood. NEUROLOGIC: He is awake, alert and oriented to person, place and time. His memory is normal. His attention is normal. His knowledge is normal or appropriate. His comprehension is intact. He has no aphasia. Speech is mildly dysarthric. Cranial nerves; his pupils are symmetric, reactive to light. His right eye does not adduct and his left eye does not abduct fully. Facial sensation is intact. Intact hearing. Subtle left facial droop, although less prominent with smiling or showing his teeth, tongue is midline with no fasciculations or abrasion. Shoulder shrug is normal. Gait deferred. He has no ataxia with [id number] testing or heel to dan testing. Sensation is intact. Muscle tone is normal. Muscle exam 5/5 throughout. Reflexes show a negative Ezra sign and no ankle clonus. Toes are downgoing. DIAGNOSTIC TESTING AND LABORATORY VALUES: WBC 6.03, hemoglobin 14.6, platelet count 187. Sodium 141, potassium 4.3, chloride 110, glucose 110. Magnesium is 2.6. LDL is 70. Urinalysis is negative. Positive A nasal MRSA screen. COVID-19 is negative. BUN is 14, creatinine 1.08. Head and neck CTA showed no acute intracranial abnormality. No significant stenosis or occlusion within the [place]. A 2 mm left supraclinoid ICA aneurysm. No significant stenosis, occlusion, or dissection identified within the carotid or vertebral arteries. Head CT noncontrast: No evidence of acute intracranial process. MRI of the brain with and without contrast; age-related involutional change, noting moderate patchy subcortical and periventricular microangiopathic disease. No hemorrhage or mass effect. No restricted diffusion to suggest acute ischemia. No enhancing mass lesion on the post-contrast imaging. Calvarium is unremarkable. Sinuses and mastoid trace mucosal thickening. Partially empty sella is incidentally noted. No acute intracranial abnormality overall. ASSESSMENT AND PLAN: A 79-year-old male with a history of hypertension and former smoker, presenting with acute-onset diplopia. The patient was seen by ophthalmology yesterday and presumed to have a partial right cranial nerve III palsy. On examination, this morning, the patient continues to have binocular diplopia with inability to adduct the right eye and trouble with abduction of the left eye. This is somewhat of a presentation of an atypical internuclear ophthalmoplegia versus an incomplete right cranial nerve III palsy. Differential diagnosis certainly includes a small midbrain stroke not seen on MRI versus a microvascular third nerve. I would recommend obtaining a sedimentation rate if not already performed. The patient will require a repeat MRI of the brain on a 3 Aniyah scanner as an outpatient with thin slices through the brainstem. I would also recommend patient be seen on an outpatient basis with neuro-ophthalmology. I will certainly try to facilitate this referral, I would recommend starting an aspirin 81 mg daily. The patient was not taking aspirin at home. The patient will benefit from an eye patch. Also, recommend physical therapy and occupational therapy for any rehabilitation needs as the patient is noting ambulatory difficulties. The patient otherwise is okay to be discharged from a neurology standpoint. I will arrange for a repeat MRI of the brain as an outpatient as well as follow up with myself and neurophthalmology. EMEKA
--- NOTE | 2020-07-31 13:12 | Electrocardiogram Report ---
Test Reason : Blood Pressure : / mmHG Vent. Rate : 069 BPM Atrial Rate : 069 BPM P-R Int : 286 ms QRS Dur : 112 ms QT Int : 418 ms P-R-T Axes : 046 -44 008 degrees QTc Int : 447 ms Sinus rhythm with 1st degree A-V block with Premature atrial complexes Left axis deviation Septal infarct , age undetermined Abnormal ECG When compared with ECG of 03-DEC-2016 13:12, Incomplete left bundle block is no longer Present Confirmed by Troy Stover ([id number]) on 07/31/2020 1:12:01 PM Referred By: REFERRED SELF Confirmed By:Troy Stover
[2020-07-31] MEDS ORDERED: STROKE PATIENT DISCHARGE STA (15:46)
--- NOTE | 2020-07-31 16:38 | Discharge Summary ---
Date of Service July 31, 2020 Admission HPI Per Admitting Provider 79-year-old male with PMH dyslipidemia, MTHFR mutation, HTN, BPH, history of colon cancer s/p partial colectomy, and other problems listed below who presents to the ED by referral of outpatient immigration associate for evaluation of diplopia and 3rd nerve palsy. Patient reports he went to bed feeling in his usual state of health. This morning, whenever he woke up he reports that he had double vision and felt very unsteady on his feet. He was evaluated by his immigration associate who found a partial 3rd nerve palsy and patient was sent to the ED for further evaluation. Patient denies lightheadedness, dizziness, syncopal event. No chest pain or shortness of breath. Denies abdominal pain, nausea, vomiting, diarrhea. No other recent illnesses, fevers, chills. Denies urinary symptoms. In the ED, head CT and head and neck CTAs are unremarkable. Patient is hemodynamically stable. Patient was given a full dose aspirin. Admission Exam Per Admitting Provider Constitutional: WD/WN, vitals as above Eyes: PERRL, conjunctivae normal, anicteric sclerae + EOM not intact (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) ENMT: external ear and nose normal, oropharynx normal Respiratory: normal respiratory effort, lungs clear to auscultation Cardiovascular: Rate/Rhythm: regular rate and regular rhythm Vessels: normal peripheral pulses Extremities: no edema Gastrointestinal (Abdomen): normal bowel sounds, soft, nontender, no hepatosplenomegaly Musculoskeletal: no cyanosis or clubbing, extremities motor strength 5/5 Skin: no rashes, warm and dry Neurologic: moves all extremities and awake; no focal motor deficits Speech / Cognition: normal speech Motor/Sensory: no pronator drift Cranial Nerves: PERRL and normal facial strength; + EOM not intact (As above) Psychiatric: A+Ox3, euthymic affect Principal Diagnosis Allergic reaction to contrast dye 3rd nerve palsy, partial Discharge Exam General: A&Ox3 HENT: Tongue swelling was improved, orbital edema was also improved Eyes: PERRLA Neck: Supple, normal range of motion CVS: normal rate and rhythm Resp: b/l good breath sounds, absence of any wheezing Abdomen: Soft, ND/NT, +BS Extremities: No c/c/e Neuro: face symmetric, focal deficits appreciated Skin: warm and dry, no rashes/lesions/errythema MSK: normal ROM, no joint swelling/erythema Discharge Data Allergies Allergy/AdvReac Type Severity Reaction Status Date / Time gadobutrol Allergy Severe tongue Verified 07/30/20 21:15 swelling Gadolinium-Containing Allergy Severe Anaphylaxis Verified 07/31/20 00:00 Contrast Medi house dust mite Allergy Mild SINUS Verified 07/30/20 20:51 DRAINAGE Consultations 07/30/20 17:43 ED Decision to Admit Stat 07/30/20 19:29 Consult Neurology Routine 07/30/20 21:30 Consult [employer] Routine Ordered Studies 07/30/20 16:12 CT angio head w con Stat CT angio neck with con Stat CT head/brain wo con Stat 07/30/20 18:27 MR brain wo/w con Routine Hospital Course (1) Allergic reaction to contrast dye: Patient developed erythema, angioedema and shortness of breath following gadolinium-containing contrast for MRI. Patient was admitted in ICU. He received Solu-Medrol, Benadryl, Pepcid and racemic epi x1. Patient was observed overnight. Patient symptoms improved. Hemodynamically she was doing better. On the day of discharge patient did not have any complaints. Was evaluated by speech therapy and was tolerating diet well. Patient was discharged in stable condition. He will complete short course of steroids. (2) 3rd nerve palsy, partial: Patient presented to ED as referral from immigration associate for new findings of diplopia and partial 3rd nerve palsy that started early this morning. CT head, CTA head and neck, and MRI all negative for acute findings. Patient will need repeat MRI as an outpatient. (3) Hypertension: Continue losartanhydrochlorothiazide, will allow permissive hypertension for possible CVA although CT and MRI imaging is negative Monitor (4) Heterozygous MTHFR mutation [id number]: Continue folic acid, vitamin B6, vitamin B12 Total Time Total Time Spent Total Time Spent (In Minutes): 35 Discharge Plan Discharge Items Patient Disposition: Home - Self-Care Reason For Visit: STROKE SYMPTOMS Discharge Diagnosis: 3rd nerve palsy, partial: Allergic reaction to contrast dye: Activity: As commented below Non-emergency contact: Primary Care Provider Call non-emergency contact if: your symptoms worsen Follow-up/Referrals: Rocco Smyth MD [Primary Care Provider] - (Date & Time 08/07/2020 10:00 AM Provider Lauren M Newhouser, DO Department [facility] ) Diet: Heart Healthy Diet Texture: Easy to Chew Addtl Attending Provider Instructions: Follow-up with your primary care physician within 1 week. An appointment has been requested. Follow-up with neurology as an outpatient. You will need a repeat MRI as an outpatient. You are not allowed to drive until you have been cleared by neuro ophthalmology. Pending Studies at Discharge: No Stand-Alone Forms: My [facility] IPLocks, Smoking Cessation Medications and DC Order Prescriptions: New aspirin 81 mg Tablet,Delayed Release (Dr/Ec) 81 mg PO DAILY Qty: 30 RF: 0 epinephrine 0.3 mg/0.3 mL auto-injector 0.3 mg IM Q4H PRN (Reason: anaphylaxis) Qty: 1 RF: 0 Continued atorvastatin 20 mg Tablet 20 mg PO HS RF: 0 cyanocobalamin (vitamin B-12) 500 mcg Tablet 500 mcg PO HS RF: 0 folic acid 1 mg Tablet 1 mg PO HS RF: 0 pyridoxine (vitamin B6) [Vitamin B-6] 100 mg Tablet 100 mg PO HS RF: 0 losartan-hydrochlorothiazide 50-12.5 mg Tablet 1 tab PO QAM RF: 0 ipratropium bromide 0.03 % [place],Non-Aerosol 2 spray INTRANASAL TID PRN (Reason: Congestion) RF: 0 albuterol sulfate 90 mcg/actuation Aerosol Powdr Breath Activated 1 inh INHALATION QID PRN (Reason: SHORT OF BREATH) RF: 0 azelastine 137 mcg (0.1 %) aerosol,spray 2 spray INTRANASAL DAILY RF: 0 vardenafil [Levitra] 20 mg Tablet 20 mg PO DAILY PRN (Reason: Erectile Dysfunction) RF: 0 Discharge Orders: Discharge Order (Routine); Ordered 07/31/20 Ordered By: Tracey Whyte Admission Data Admit Date/Time: 07/30/20 17:51 Attending Provider: Tracey Whyte Admit Provider: Cameron Parson Primary Care Provider: Rocco Smyth Other Providers: Luis Adams Other Interventions: Discharge Summary Assessment (RN) Last Done: 07/31/20 16:10
== END 2020-07-31 16:39 | disposition home or self-care (01) ==
LOC: 2S 16:18 → ED 16:18 → SUATTDRO 17:51 → 2S 19:05 → 1E 21:28
DX: Z85.038 Personal history of other malignant neoplasm of large intestine; T50.8X5A Adverse effect of diagnostic agents, initial encounter; Z90.49 Acquired absence of other specified parts of digestive tract; H49.00 Third [oculomotor] nerve palsy, unspecified eye; I10 Essential (primary) hypertension; Z86.16 Personal history of COVID-19; Z79.51 Long term (current) use of inhaled steroids; M19.90 Unspecified osteoarthritis, unspecified site; Z88.8 Allergy status to other drugs, medicaments and biological substances; Z79.899 Other long term (current) drug therapy; Z87.891 Personal history of nicotine dependence; N40.0 Benign prostatic hyperplasia without lower urinary tract symptoms; E72.12 Methylenetetrahydrofolate reductase deficiency; E78.5 Hyperlipidemia, unspecified